=== PATIENT | male | born 2000 | race African-American/Black ===

== ENCOUNTER 2021-12-18 20:09 | Emergency (ER) | payer SELFPAY | END 2021-12-18 21:19 | disposition home or self-care (01) | LOC: CSHERS 20:09 | DX: S86.012A Strain of left Achilles tendon, initial encounter (principal); F17.210 Nicotine dependence, cigarettes, uncomplicated; X50.9XXA Other and unspecified overexertion or strenuous movements or postures, initial encounter | CPT/HCPCS: 29515 ==

== ENCOUNTER 2021-12-22 10:52 | Outpatient (CLI) | payer OTHER, SELFPAY | END 2021-12-22 10:53 | disposition home or self-care (01) | LOC: CSHULT 10:52 | PROVIDERS: ATTEND Orthopaedic Surgery | DX: S86.012A Strain of left Achilles tendon, initial encounter (principal) | CPT/HCPCS: 76882 ==